=== PATIENT | female | born 1985 | race Caucasian/White ===

== ENCOUNTER 2018-10-05 18:34 | Emergency (ER) | payer MEDICAID, OTHER ==
[~2018-10-05] VITALS: Ht 162.6 cm; Wt 86.4 kg
--- NOTE | 2018-10-05 18:45 | NUR ---
PT REPORTS BEING BITTEN ON THE CORNER OF [place] AND [place]. PT REPORTS DOG WAS A LARGE BLACK LAB LOOKING TYPE. DOG HAD NO COLLARS, NO MARKERS, AND NO TOURIST ESCORT PRESENT.
--- NOTE | 2018-10-05 19:51 | NUR ---
PATIENT GETTING INTO GOWN
[2018-10-05] MEDS ORDERED: rabies immune globulin/PF 150 unit/ml inj IM ONE (20:10)
[2018-10-05] MEDS ORDERED: ibuprofen tablet 400 MG TABLET PO ONE (20:10)
[2018-10-05] MEDS ORDERED: TETanus/Pertussis (Acell)/Diphther VAC/PF (Tdap-Adult) 0.5ml syringe IMVAC ONE (20:10)
[2018-10-05] MEDS ORDERED: rabies vaccine (PCEC)/PF 2.5 unit kit IM ONE (20:10)
[2018-10-05] MEDS ORDERED: LIDOcaine 1% 30ml preserv. free vial IJ ONE (20:10)
--- NOTE | 2018-10-05 21:29 | NUR ---
pt declined lidocain pre treatment. given tetnus and rabies vaccine. dog bite wounds to bilateral posterior thighs injected with rabies immuniglobulin per protocol and then cleaned and scrubbed with chlorahexadine. pt tolerated procedures well. adis garcia updated on procedures completed and she will dc pt shortly. pt with stable vs. pt given wound care dressing supplies. area with 4x4 [address]aped in [address].
[2018-10-05] MEDS ORDERED: AMOX-580 PO (21:30)
[2018-10-05 21:32] VITALS: BP 119/67
== END 2018-10-05 21:45 | disposition home or self-care (01) ==
LOC: ER 18:35
DX: S71.131A Puncture wound without foreign body, right thigh, initial encounter (principal); S70.312A Abrasion, left thigh, initial encounter; Z79.899 Other long term (current) drug therapy; W54.0XXA Bitten by dog, initial encounter; Y93.01 Activity, walking, marching and hiking; Y92.89 Other specified places as the place of occurrence of the external cause; Y99.8 Other external cause status
CPT/HCPCS: 90375; 90471; 90472; 90675; 90715; 96372; 99283; J3490

== ENCOUNTER 2018-10-08 10:11 | Emergency (ER) | payer OTHER ==
[~2018-10-08] VITALS: Ht 162.6 cm; Wt 86.0 kg
[~2018-10-08 10:11] MED LIST: AMOX-580 PO
[2018-10-08 10:40] VITALS: BP 112/65
[2018-10-08] MEDS ORDERED: ketorolac trometh. 30mg/ml inj. IM ONE (11:30)
[2018-10-08] MEDS ORDERED: rabies vaccine (PCEC)/PF 2.5 unit kit IMVAC ONE (12:15)
== END 2018-10-08 13:04 | disposition home or self-care (01) ==
LOC: ER 10:12
DX: S71.131D Puncture wound without foreign body, right thigh, subsequent encounter (principal); S70.312D Abrasion, left thigh, subsequent encounter; Z23 Encounter for immunization; Z79.899 Other long term (current) drug therapy; W54.0XXD Bitten by dog, subsequent encounter
CPT/HCPCS: 90471; 90675; 96372; 99283; J1885

== ENCOUNTER → 2018-10-12 | Emergency (ER) | payer OTHER ==
[~2018-10-12] VITALS: Ht 162.6 cm; Wt 89.1 kg
[~2018-10-12] MED LIST changes: +rabies vaccine (PCEC)/PF 2.5 unit kit IMVAC ONE
[2018-10-12 07:49] VITALS: BP 133/90
== END | disposition home or self-care (01) ==
LOC: ER 07:31
DX: Z23 Encounter for immunization (principal)
CPT/HCPCS: 90471; 90675; 99283